=== PATIENT | male | born 1965 | race Caucasian/White ===

== ENCOUNTER → 2018-01-14 | Outpatient (CLI) | payer OTHER ==
[~2018-01-14] MED LIST: AMBIEN 10 MG TA10 MG PO; AMBIEN 5 MG TABL5 M1; AMITRIPTYLINE H50 M2; AMITRIPTYLINE H50 M3 PO; ANDROGEL75 GM; BACLOFEN 10MG T10 M1 PO; BACLOFEN 10MG T10 MG PO; CARBAMAZEPINE200 M2; CARBAMAZEPINE300 MG PO; CLARITIN10 MG; CLARITIN10 MG PO; CYCLOBENZAPRINE10 MG; DILAUDID2 M1 PO; FLEXERIL PO; FLONASE 0.05%50 MCG; FLONASE16 GM; FOLIC ACID PO; GABAPENTIN100 MG; GABAPENTIN100 MG PO; KEPPRA 500 MG500 M1 PO; KEPPRA 500 MG500 MG PO; LYRICA 50 MG50 MG PO; NEURONTIN 300M300 M2 PO; NEURONTIN600 MG PO; NORCO 10-325 T1 EACH PO; OXYCODONE HCL15 MG PO; OXYCONTIN30 MG PO; PHENERGAN 25 MG25 M1 PO; PRAVACHOL40 MG; PRAVACHOL40 MG PO; PRILOSEC 20 MG20 MG; PRILOSEC 20 MG20 MG PO; SAVELLA100 MG PO; SAVELLA50 MG; SAVELLA50 MG PO; SMOOTHLAX17 GM; SMOOTHLAX17 GM PO; TOPAMAX 25 MG T25 M1 PO; TOPAMAX50 MG PO; TRAMADOL 50 MG50 MG; TRILEPTAL 300300 MG PO; ULTRAM 50MG TAB50 MG PO; VITAMIN B-12500 MCG PO; VITAMIN D31000 UNIT PO
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
== END ==
LOC: M.PC 01-02 01:53
DX: M54.16 Radiculopathy, lumbar region (principal); M79.602 Pain in left arm; M79.7 Fibromyalgia; F32.9 Major depressive disorder, single episode, unspecified; E78.00 Pure hypercholesterolemia, unspecified